=== PATIENT | female | born 2000 | race Caucasian/White ===

== ENCOUNTER 2020-11-08 13:21 | Outpatient (CLI) | payer OTHER ==
[2020-11-08] MEDS ORDERED: PRENATAL CAPLE1 EAC1 PO (13:56)
== END 2020-11-09 09:05 | disposition home or self-care (01) ==
LOC: OBS/DEL 13:21
PROVIDERS: ATTEND Specialist
DX: O26.842 Uterine size-date discrepancy, second trimester (principal); O60.02 Preterm labor without delivery, second trimester; Z3A.20 20 weeks gestation of pregnancy; O26.892 Other specified pregnancy related conditions, second trimester; R10.2 Pelvic and perineal pain

== ENCOUNTER 2021-03-20 09:47 | Outpatient (CLI) | payer OTHER ==
[~2021-03-20 09:47] MED LIST: PRENATAL CAPLE1 EAC1 PO
== END 2021-03-20 20:04 | disposition home or self-care (01) ==
LOC: OBS/DEL 09:47
PROVIDERS: ATTEND Specialist
DX: O98.513 Other viral diseases complicating pregnancy, third trimester (principal); U07.1 COVID-19; Z3A.39 39 weeks gestation of pregnancy

== ENCOUNTER 2021-03-20 10:14 | Inpatient (IN) | payer OTHER ==
[~2021-03-20] VITALS: Ht 170.2 cm; Wt 72.6 kg
== END 2021-03-23 15:56 | disposition home or self-care (01) | DRG 805 ==
LOC: LDR 03-21 11:49 → OB/GYN 03-21 11:49
PROVIDERS: ADMIT Specialist; ATTEND Specialist
PROC: 10E0XZZ Delivery of Products of Conception, External Approach (ICD-10-PCS; principal; 2021-03-21)
PROC: 0UQG7ZZ Repair Vagina, Via Natural or Artificial Opening (ICD-10-PCS; 2021-03-21)
PROC: 10907ZC Drainage of Amniotic Fluid, Therapeutic from Products of Conception, Via Natural or Artificial Opening (ICD-10-PCS; 2021-03-21)
PROC: 0W8NXZZ Division of Female Perineum, External Approach (ICD-10-PCS; 2021-03-21)
PROC: 3E033VJ Introduction of Other Hormone into Peripheral Vein, Percutaneous Approach (ICD-10-PCS; 2021-03-21)
PROC: 4A1HXFZ Monitoring of Products of Conception, Cardiac Rhythm, External Approach (ICD-10-PCS; 2021-03-21)
DX: O98.52 Other viral diseases complicating childbirth (principal); U07.1 COVID-19; O71.4 Obstetric high vaginal laceration alone; Z37.0 Single live birth; Z3A.39 39 weeks gestation of pregnancy

== ENCOUNTER 2024-03-15 08:39 | Emergency (ER) | payer OTHER ==
[~2024-03-15] VITALS: Ht 167.6 cm; Wt 64.4 kg
[2024-03-15] MEDS ORDERED: CEFTRIAXONE SODIUM 2,000 MG VIAL IV STA (09:37)
[2024-03-15] MEDS ORDERED: KETOROLAC TROMETHAMINE 15 MG VIAL IV STA (09:37)
[2024-03-15] MEDS ORDERED: KETOROLAC TROMETHAMINE 60 MG VIAL IM ONE (09:50)
[2024-03-15] MEDS ORDERED: CEFTRIAXONE SODIUM 2,000 MG VIAL ONE (09:50)
== END 2024-03-15 10:04 | disposition home or self-care (01) ==
LOC: ER 08:41
DX: R10.2 Pelvic and perineal pain (principal)